=== PATIENT | female | born 1975 | race Hispanic/Latino ===

== ENCOUNTER 2016-12-20 13:36 | Outpatient (CLI) | payer OTHER ==
--- NOTE | 2016-12-20 15:36 | Ultrasound Report ---
TRANSABDOMINAL AND TRANSVAGINAL PELVIC ULTRASOUND: 12/20/16 13:36:00 CLINICAL: Enlarged uterus on pelvic exam. FINDINGS: Transabdominal and transvaginal pelvic ultrasound demonstrated a normal size uterus measuring 7.4 x 3.3 x 4.6 cm. No uterine fibroid or mass.The endometrium is normal and measures 4 mm AP thickness. Normal ovaries. The right ovary measures 2.1 x 2.0 x 0.9cm. The left ovary measures 2.7 x 2.1 x 1.2 cm. No adnexal mass. No free fluid. Normal urinary bladder. IMPRESSION: Normal pelvis with normal uterus and ovaries. No mass.
--- NOTE | 2016-12-20 15:39 | Ultrasound Report ---
TRANSABDOMINAL AND TRANSVAGINAL PELVIC ULTRASOUND: 12/20/16 13:36:00 CLINICAL: Enlarged uterus on pelvic exam. FINDINGS: Transabdominal and transvaginal pelvic ultrasound demonstrated a normal size uterus measuring 7.4 x 3.3 x 4.6 cm. No uterine fibroid or mass.The endometrium is normal and measures 4 mm AP thickness. Normal ovaries. The right ovary measures 2.1 x 2.0 x 0.9 cm. The left ovary measures 2.7 x 2.1 x 1.2 cm. No adnexal mass. No free fluid. Normal urinary bladder. IMPRESSION: Normal pelvis with normal uterus and ovaries. No mass. Transcribed By: REF Dictated By: BAILEY FAROOQ MD Electronically Authenticated By: BAILEY FAROOQ MD Signed Date/Time: 12/20/16 1538
--- NOTE | 2016-12-20 16:18 | Mammography Report ---
BILATERAL DIGITAL SCREENING MAMMOGRAM with CAD: 12/20/16 13:36:00 CLINICAL: Routine screening. COMPARISON:None. FINDINGS: There are bilateral scattered curvilinear densities. A right asymmetry on the CC view requires additional imaging.No architectural distortion or suspicious calcifications.The left breast is negative. IMPRESSION: Right asymmetry requiring further workup. BI-RADS CATEGORY: 0 -- Additional Imaging Evaluation Required RECOMMENDATION: Recall for right exaggerated CC, mediolateral and spot compression CC views and right breast ultrasound if needed. ACR BI-RADS MAMMOGRAPHIC CODES: 0 = Needs additional imaging evaluation; 1 = Negative; 2 = Benign; 3 = Probably benign; 4 = Suspicious; 5 = Malignant; 6 = Known biopsy-proven malignancy COMMENT: 1. Dense breast tissue, i.e., adenosis, fibrocystic changes, etc., may obscure an underlying neoplasm. 2. Approximately 10% of cancers are not detected with mammography. 3. A negative mammography report should not delay biopsy if a clinically suspicious mass is present. COMMENT: Patient follow-up letters are generated via our [employer] application.
== END 2016-12-20 13:37 | disposition home or self-care (01) ==
LOC: SPVWC 13:36
PROVIDERS: ATTEND Family Medicine
DX: Z12.31 Encounter for screening mammogram for malignant neoplasm of breast (principal); N85.2 Hypertrophy of uterus
CPT/HCPCS: 76830; 76856; G0202; 77067

== ENCOUNTER 2017-01-03 09:13 | Outpatient (CLI) | payer OTHER ==
--- NOTE | 2017-01-03 10:42 | Mammography Report ---
Right mammogram: Additional CC and lateral compression imaging is performed based on recent screening asymmetry seen on December 20. The asymmetry in the upper-outer breast is still demonstrates increased density however the additional images do not clearly demonstrate a focal mass nor architectural distortion. Impression: Right asymmetry which may represent focal fibroglandular tissue. Recommendation: Ultrasound recommended to confirm the absence of additional findings. The patient did not have this exam at this time and will reschedule. BI-RADS CATEGORY: 0 = Needs additional imaging evaluation ACR BI-RADS MAMMOGRAPHIC CODES: 0 = Needs additional imaging evaluation; 1 = Negative; 2 = Benign; 3 = Probably benign; 4 = Suspicious; 5 = Malignant; 6 = Known biopsy-proven malignancy COMMENT: 1. Dense breast tissue, i.e., adenosis, fibrocystic changes, etc., may obscure an underlying neoplasm. 2. Approximately 10% of cancers are not detected with mammography. 3. A negative mammography report should not delay biopsy if a clinically suspicious mass is present.
== END 2017-01-03 09:14 | disposition home or self-care (01) ==
LOC: SPVWC 09:13
PROVIDERS: ATTEND Family Medicine
DX: R92.2 Inconclusive mammogram (principal)
CPT/HCPCS: G0206-RT

== ENCOUNTER 2017-01-14 09:07 | Outpatient (CLI) | payer OTHER ==
--- NOTE | 2017-01-14 10:37 | Ultrasound Report ---
RIGHT BREAST ULTRASOUND: 01/14/17 09:07:00 CLINICAL: Right upper outer mammographic asymmetry at screening and on a followup diagnostic mammogram. COMPARISON: 12/20/16 and 01/03/17 mammograms. FINDINGS: Ultrasound of the right breast(including all four quadrants and the retroareolar area) was performed and demonstrated normal fibroglandular structures with no mass, cyst or shadowing to correlate with the mammographic asymmetry. The asymmetry was less prominent on the diagnostic mammogram than on the screening exam. IMPRESSION: A probably benign right upper outer asymmetry with a negative ultrasound. BI-RADS 3 - - Probably Benign RECOMMENDATION: Six month followup right mammogram and right breast ultrasound if needed.
== END 2017-01-14 09:08 | disposition home or self-care (01) ==
LOC: SPVWC 09:07
PROVIDERS: ATTEND Family Medicine
DX: N64.89 Other specified disorders of breast (principal)